=== PATIENT | female | born 1990 | race Two or more races ===

== ENCOUNTER 2016-11-14 16:03 | Emergency (ER) | payer MEDICAID ==
[~2016-11-14] VITALS: Ht 154.9 cm; Wt 71.2 kg
[2016-11-14 16:41] LABS: Basophils # (auto) 0.1 uL; Basophils % (auto) 0.5 % (0.0-2.0); Eosinophils # (auto) 0.3 uL; Eosinophils % (auto) 2.1 % (0.0-7.0); Hematocrit 44.8 % (36.0-46.0); Hemoglobin 15.3 g/dL (12.2-16.2); Lymphocytes # (auto) 2.5 uL; Lymphocytes % (auto) 20.6 % (10.0-50.0); Mean Corpuscular Hemoglobin 30.3 pg (28.0-32.0); Mean Corpuscular Hgb Conc. 34.1 g/dL (32.0-36.0); Mean Platelet Volume 8.6 fL (7.4-10.4); Monocytes % (auto) 7.8 % (0.0-12.0); Neutrophils # (auto) 8.4 uL; Platelet Count (auto) 324 10^3/uL (140-450); Red Cell Distribution Width 12.4 % (11.6-16.0); White Blood Cell 12.2 10^3/uL (4.4-10.8)
[2016-11-14 17:02] LABS: Albumin 3.6 g/dL (3.4-5.0); Calcium 8.9 mg/dL (8.5-10.1); Potassium 4.1 mmol/L (3.5-5.1)
[2016-11-14 17:05] LABS: Bilirubin, Total 0.3 mg/dL (0.2-1.0); Total Protein 8.5 g/dL (6.4-8.2)
[2016-11-14 17:12] LABS: Urine Bilirubin Negative (Negative); Urine Blood Negative /uL (Negative); Urine Color Yellow (Yellow); Urine Glucose Normal (Normal); Urine Ketone Negative (Negative); Urine Nitrite Negative (Negative); Urine RBC 16 /hpf (0 - 4); Urine Squamous Epithelial Cell FEW /hpf (<5); Urine Urobilinogen Normal (Negative); Urine pH 8.5 (5.0-8.0)
[2016-11-14 18:52] VITALS: BP 132/95
== END 2016-11-14 20:11 | disposition home or self-care (01) ==
LOC: ER 16:10
DX: J03.90 Acute tonsillitis, unspecified (principal); R51 Headache
CPT/HCPCS: 36415; 80053; 81001; 81025; 84702; 85025